=== PATIENT | female | born 1985 | race Hispanic/Latino ===

== ENCOUNTER 2022-08-11 19:26 | Emergency (ER) | payer SELFPAY ==
[2022-08-11] MEDS ORDERED: FAMOTIDINE 20 MG/2 ML VIAL IV ONE (19:58)
[2022-08-11] MEDS ORDERED: MECLIZINE HCL 12.5 MG TAB ONE (19:58)
[2022-08-11] MEDS ORDERED: ONDANSETRON 4 MG/2 ML VIAL ONE (19:58)
--- NOTE | 2022-08-11 20:48 | RAD REPORT ---
EXAM DESCRIPTION: CT - Head Brain Wo Cont - 08/11/2022 8:03 pm CLINICAL HISTORY: SYNCOPE COMPARISON: No comparisons TECHNIQUE: Noncontrast head CT images were obtained without IV contrast. Multiplanar reformats were generated and reviewed. All CT scans are performed using dose optimization technique as appropriate and may include automated exposure control or mA/KV adjustment according to patient size. FINDINGS: No intracranial hemorrhage, mass, or edema. Midline structures are unremarkable. Normal ventricular caliber for age. Terrell-white matter differentiation is preserved, without evidence of acute infarct. No abnormal extra- axial fluid collections. Mastoid air cells and visualized portions of the paranasal sinuses are clear. No acute bony findings. IMPRESSION: No evidence of an acute intracranial process.
[2022-08-11 20:56] LABS: Absolute Lymphocytes (CBC) 1.3 K/uL (0.7-4.9); Hematocrit 34.2 % (36.0-45.0); Lymphocytes % 20.9 % (15.3-44.8); MCV 88.1 fL (80-100); MPV 7.8 fL (7.6-11.3); RBC Red Blood Cell Count 3.88 M/uL (3.86-4.86)
[2022-08-11 21:07] LABS: ALT/SGPT 18 U/L (13-56); AST/SGOT 12 U/L (15-37); Albumin 3.7 g/dL (3.4-5.0); Alkaline Phosphatase 52 U/L (45-117); BUN Blood Urea Nitrogen 10 mg/dL (7-18); Bicarbonate 28 mEq/L (21-32); Bilirubin Direct 0.1 mg/dL (0-0.2); Bilirubin Indirect, Calculated 0.1 mg/dL (0.2-0.8); Bilirubin Total 0.2 mg/dL (0.2-1.0); Glomerular Filtration Rate 96 ml/min (=/>90); Glucose Level 95 mg/dL (74-106); Lipase 44 U/L (13-75); Magnesium 2.2 mg/dL (1.6-2.4); Potassium 3.4 mEq/L (3.5-5.1); Protein, Total 7.1 g/dL (6.4-8.2); Sodium Level 140 mEq/L (136-145)
[2022-08-11 21:08] LABS: Troponin High Sensitivity < 3.0 pg/mL (<58.9)
[2022-08-11 21:13] LABS: Urine Bacteria None Seen /HPF (<20); Urine Mucus Slight /HPF (None Seen); Urine RBC <5 /HPF (None Seen)
--- NOTE | 2022-08-11 21:17 | RAD REPORT ---
EXAM DESCRIPTION: Janice Single View08/11/2022 8:47 pm CLINICAL HISTORY: syncope COMPARISON: No comparisons TECHNIQUE: Portable AP view of the chest. FINDINGS: The lungs are clear. No pneumothorax or effusion. The cardiomediastinal contours are unre markable. IMPRESSION: No acute cardiopulmonary process.
[2022-08-11] MEDS ORDERED: POTASSIUM 25 MEQ EFFERV TAB ONE (22:03)
[2022-08-11] MEDS ORDERED: NA CHLORIDE 0.9% 1,000 ML ONE (22:03)
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
[2022-08-11 23:44] VITALS: TEMP 98.4
[2022-08-11 23:48] VITALS: O2SAT 100
[2022-08-11 23:50] VITALS: BP 115/75
--- NOTE | 2022-08-14 17:17 | EKG ---
Test Date: 2022-08-11 Test Time: 20:56:40 Journalism Internship: [employer] MEASUREMENT RESULTS: Intervals: Rate: 95 IA: 138 QRSD: 78 QT: 340 QTc: 427 [place]: P: 77 IA: 138 QRS: 78 T: 59 INTERPRETIVE STATEMENTS: Normal sinus rhythm Normal ECG No previous ECG available for comparison Electronically Signed On 08-14-22 17:14:02 CDT by Eamon Davis
== END 2022-08-11 23:12 | disposition home or self-care (01) ==
LOC: ER 19:26
DX: R55 Syncope and collapse (principal); R11.2 Nausea with vomiting, unspecified; R42 Dizziness and giddiness
CPT/HCPCS: 36415; 70450; 71045; 80048; 80076; 81015; 81025; 83690; 83735; 84484; 85025; 93005; 96374; 96375; 99285; J2405; J7030; J8597